=== PATIENT | male | born 1970 | race Asian ===

== ENCOUNTER 2021-01-06 22:37 | Emergency (ER) | payer BC ==
[~2021-01-06] VITALS: Ht 170.2 cm; Wt 68.0 kg
[2021-01-06 22:45] VITALS: Ht 170.2 cm; Wt 68.0 kg
[2021-01-07 00:24] LABS: BASOPHIL % 0.5 % (0.2-1.5)
[2021-01-07 00:26] LABS: PLATELET COUNT 242 x10^3mcL (152-348); RED CELL DISTRIBUTION WIDTH 14.2 % (12.1-16.2)
[2021-01-07 00:39] LABS: CALCIUM 8.8 mg/dL (8.5-10.1); CARBON DIOXIDE 28.2 mmol/L (21-32); CHLORIDE SERUM 102 mmol/L (98-107); CREATININE SERUM 1.1 mg/dL (0.7-1.3); GFR1 > 60 mL/min; GLUCOSE SERUM 329 mg/dL (74-106); POTASSIUM SERUM 4.2 mmol/L (3.5-5.1); SODIUM SERUM 137 mmol/L (136-145)
[2021-01-07 00:43] LABS: ALBUMIN 4.2 g/dL (3.4-5.0); ALKALINE PHOSPHATASE 105 U/L (46-116); ALT/SGPT 25 U/L (16-63); AMYLASE 36 U/L (25-115); AST/SGOT 13 U/L (15-37); BILIRUBIN TOTAL 1.3 mg/dL (0.20-1.00); LIPASE 97 IU/L (73-393); TOTAL PROTEIN, SERUM 7.6 g/dL (6.4-8.2)
[2021-01-07 04:40] LABS: BASOPHIL % 1.1 % (0.2-1.5); PLATELET COUNT 231 x10^3mcL (152-348); RED CELL DISTRIBUTION WIDTH 13.7 % (12.1-16.2)
[2021-01-07 04:53] LABS: CARBON DIOXIDE 24.1 mmol/L (21-32); CHLORIDE SERUM 103 mmol/L (98-107); CREATININE SERUM 1.2 mg/dL (0.7-1.3); GFR1 > 60 mL/min; GLUCOSE SERUM 322 mg/dL (74-106); POTASSIUM SERUM 4.2 mmol/L (3.5-5.1); SODIUM SERUM 136 mmol/L (136-145)
[2021-01-07 05:18] VITALS: BP 155/95
== END 2021-01-07 05:46 | disposition home or self-care (01) ==
LOC: ED 22:37
PROVIDERS: Emergency Medicine
DX: N20.0 Calculus of kidney (principal)
CPT/HCPCS: J7030; Q9967

== ENCOUNTER 2021-01-23 20:48 | Inpatient (IN) | payer BC ==
[~2021-01-23] VITALS: Ht 170.2 cm; Wt 70.8 kg
[2021-01-23 20:53] VITALS: Ht 170.2 cm; Wt 70.8 kg
[2021-01-23 21:45] LABS: CALCIUM 8.7 mg/dL (8.5-10.1); CARBON DIOXIDE 25.4 mmol/L (21-32); CHLORIDE SERUM 98 mmol/L (98-107); CREATININE SERUM 1.3 mg/dL (0.7-1.3); GFR1 > 60 mL/min; GLUCOSE SERUM 419 mg/dL (74-106); SODIUM SERUM 134 mmol/L (136-145)
[2021-01-23] MEDS ORDERED: FLOMAX0.4 MG PO (22:19)
[2021-01-23] MEDS ORDERED: CIPRO250 MG/5 M PO (22:19)
[2021-01-23 23:09] LABS: HDL CHOLESTEROL 41 mg/dL (40-60)
[2021-01-23 23:10] LABS: CHOLESTEROL 201 mg/dL (<200); CHOLESTEROL/HDL RATIO 4.9; TRIGLYCERIDES 581 mg/dL (<150)
[2021-01-23 23:23] LABS: FREE T4 1.17 ng/dL (0.76-1.46); FREE THYROXINE INDEX 2.8 ug/dL (1.4-4.5)
[2021-01-23 23:24] VITALS: BP 157/93
[2021-01-24 00:16] LABS: T3 TOTAL 1.08 ng/mL
[2021-01-24 05:38] VITALS: BP 136/86
[2021-01-24 06:50] LABS: BASOPHIL % 0.9 % (0.2-1.5); PLATELET COUNT 225 x10^3mcL (152-348)
[2021-01-24 07:16] LABS: CALCIUM 8.8 mg/dL (8.5-10.1); CARBON DIOXIDE 24.1 mmol/L (21-32); CHLORIDE SERUM 101 mmol/L (98-107); CREATININE SERUM 1.2 mg/dL (0.7-1.3); GFR1 > 60 mL/min; GLUCOSE SERUM 245 mg/dL (74-106); MAGNESIUM 1.9 mg/dL (1.8-2.4); POTASSIUM SERUM 3.7 mmol/L (3.5-5.1); SODIUM SERUM 135 mmol/L (136-145)
[2021-01-24 08:02] VITALS: BP 140/79
[2021-01-24 09:57] LABS: microscopic required? NO
[2021-01-24 10:23] LABS: UA SPECIFIC GRAVITY 1.015 (1.005-1.035); urine erythrocyte NEGATIVE (NEGATIVE)
[2021-01-24 12:00] VITALS: BP 138/83
[2021-01-24 16:12] VITALS: BP 118/69
[2021-01-24 20:26] VITALS: BP 130/71
[2021-01-25 04:50] VITALS: BP 129/75
[2021-01-25 13:08] VITALS: BP 139/84
[2021-01-25 17:21] VITALS: BP 133/80
[2021-01-25 20:25] LABS: BASOPHIL % 0.2 % (0.2-1.5); PLATELET COUNT 253 x10^3mcL (152-348); RED CELL DISTRIBUTION WIDTH 13.9 % (12.1-16.2)
[2021-01-25 20:53] LABS: BILIRUBIN TOTAL 0.92 mg/dL (0.20-1.00); CALCIUM 9.1 mg/dL (8.5-10.1); CARBON DIOXIDE 23.1 mmol/L (21-32); CREATININE SERUM 1.4 mg/dL (0.7-1.3); TOTAL PROTEIN, SERUM 7.2 g/dL (6.4-8.2)
[2021-01-25 21:09] LABS: ALBUMIN 3.3 g/dL (3.4-5.0)
[2021-01-25 21:20] VITALS: BP 115/76
[2021-01-26 05:48] VITALS: BP 123/68
[2021-01-26 08:42] VITALS: BP 127/79
[2021-01-26 09:46] LABS: BASOPHIL % 0.8 % (0.2-1.5); PLATELET COUNT 245 x10^3mcL (152-348); RED CELL DISTRIBUTION WIDTH 13.8 % (12.1-16.2)
[2021-01-26 09:47] LABS: CALCIUM 8.8 mg/dL (8.5-10.1); CARBON DIOXIDE 24.9 mmol/L (21-32); CHLORIDE SERUM 99 mmol/L (98-107); CREATININE SERUM 1.1 mg/dL (0.7-1.3); GFR1 > 60 mL/min; GLUCOSE SERUM 277 mg/dL (74-106); POTASSIUM SERUM 3.4 mmol/L (3.5-5.1); SODIUM SERUM 134 mmol/L (136-145)
[2021-01-26] MEDS ORDERED: BAY PO (10:00)
[2021-01-26] MEDS ORDERED: LIPI20 PO (10:00)
[2021-01-26] MEDS ORDERED: LANTI SQ (10:01)
[2021-01-26] MEDS ORDERED: ACCU-CHEK1 EAC1 MC (10:02)
[2021-01-26] MEDS ORDERED: CIPRO500 MG PO (10:03)
[2021-01-26 12:34] VITALS: BP 138/75
[2021-01-26 14:30] VITALS: BP 138/75
[2021-01-26 16:05] VITALS: BP 111/72
== END 2021-01-26 17:13 | disposition home or self-care (01) | DRG 660 ==
LOC: ED 20:48 → DU 22:15
PROVIDERS: Emergency Medicine; Urology; ADMIT Internal Medicine; ATTEND Internal Medicine
PROC: BT1F1ZZ Fluoroscopy of Left Kidney, Ureter and Bladder using Low Osmolar Contrast (ICD-10-PCS; 2021-01-25)
PROC: 0T778DZ Dilation of Left Ureter with Intraluminal Device, Via Natural or Artificial Opening Endoscopic (ICD-10-PCS; principal; 2021-01-25 08:30)
DX: N13.2 Hydronephrosis with renal and ureteral calculous obstruction (principal); E87.1 Hypo-osmolality and hyponatremia; Z20.822 Contact with and (suspected) exposure to COVID-19; E11.65 Type 2 diabetes mellitus with hyperglycemia; K74.60 Unspecified cirrhosis of liver; I45.10 Unspecified right bundle-branch block; Z86.16 Personal history of COVID-19
CPT/HCPCS: 82962; 83880; 84439; C1769; C2625; G0378; J0131; J0696; J1815; J2250; J2405; J3010; J3490; J7030; J7070; Q9967

== ENCOUNTER 2021-02-04 06:01 | Day surgery (SDC) | payer BC, SELFPAY ==
[2021-01-23 17:03] LABS: microscopic required? NO
[2021-01-23 17:17] LABS: BASOPHIL % 0.9 % (0.2-1.5); PLATELET COUNT 232 x10^3mcL (152-348); RED CELL DISTRIBUTION WIDTH 14.2 % (12.1-16.2)
[2021-01-23 17:19] LABS: UA SPECIFIC GRAVITY 1.015 (1.005-1.035); urine erythrocyte NEGATIVE (NEGATIVE)
[2021-01-23 17:34] LABS: ALBUMIN 3.6 g/dL (3.4-5.0); CARBON DIOXIDE 29.3 mmol/L (21-32); CREATININE SERUM 1.4 mg/dL (0.7-1.3); POTASSIUM SERUM 3.7 mmol/L (3.5-5.1); TOTAL PROTEIN, SERUM 6.9 g/dL (6.4-8.2)
[2021-01-31 11:04] LABS: BASOPHIL % 1.4 % (0.2-1.5); PLATELET COUNT 305 x10^3mcL (152-348); RED CELL DISTRIBUTION WIDTH 13.7 % (12.1-16.2)
[2021-01-31 11:11] LABS: CALCIUM 9.4 mg/dL (8.5-10.1); CARBON DIOXIDE 29.4 mmol/L (21-32); CHLORIDE SERUM 99 mmol/L (98-107); CREATININE SERUM 0.8 mg/dL (0.7-1.3); GFR1 > 60 mL/min; GLUCOSE SERUM 202 mg/dL (74-106); POTASSIUM SERUM 4.2 mmol/L (3.5-5.1); SODIUM SERUM 137 mmol/L (136-145)
[2021-01-31 11:15] LABS: ALBUMIN 3.8 g/dL (3.4-5.0); ALKALINE PHOSPHATASE 88 U/L (46-116); ALT/SGPT 22 U/L (16-63); AST/SGOT 15 U/L (15-37); BILIRUBIN TOTAL 0.8 mg/dL (0.20-1.00); TOTAL PROTEIN, SERUM 7.5 g/dL (6.4-8.2)
[~2021-02-04] VITALS: Ht 170.2 cm; Wt 68.0 kg
[~2021-02-04 06:01] MED LIST: ACCU-CHEK1 EAC1 MC; BAY PO; CIPRO250 MG/5 M PO; CIPRO500 MG PO; FLOMAX0.4 MG PO; LANTI SQ; LIPI20 PO
[2021-02-04 06:42] VITALS: BP 122/75
[2021-02-04 11:39] VITALS: BP 124/80
== END 2021-02-04 11:20 | disposition home or self-care (01) ==
LOC: CANPRESDC → DS 06:01
PROVIDERS: ATTEND Urology
DX: N20.1 Calculus of ureter (principal); E11.9 Type 2 diabetes mellitus without complications; Z79.84 Long term (current) use of oral hypoglycemic drugs; Z86.16 Personal history of COVID-19; Z79.82 Long term (current) use of aspirin
CPT/HCPCS: 82962; C1758; C1769; C2625; J0696; J3010; Q9967